=== PATIENT | female | born 1980 | race Caucasian/White ===

== ENCOUNTER 2021-03-16 13:07 | Emergency (ER) | payer OTHER ==
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
[2021-03-16 15:31] LABS: AMPHETAMINES,URINE NEGATIVE (NEGATIVE); BARBITURATES,URINE NEGATIVE (NEGATIVE); BENZODIAZEPINE,URINE NEGATIVE (NEGATIVE); MDMA (ECSTASY), URINE NEGATIVE (NEGATIVE); METHADONE,URINE NEGATIVE (NEGATIVE); METHAMPHETAMINES,URINE NEGATIVE (NEGATIVE); OPIATES,URINE NEGATIVE (NEGATIVE); OXYCODONE,URINE NEGATIVE (NEGATIVE); PHENCYCLIDINE,URINE NEGATIVE (NEGATIVE); TCA,URINE NEGATIVE (NEGATIVE)
[2021-03-16 16:24] LABS: ANION GAP 14.7 mEq/L (7-13); CHLORIDE,CL 105 mmol/L (98-107); SODIUM,NA 142 mmol/L (136-145)
[2021-03-16 16:29] LABS: ACETAMINOPHEN 0 ug/mL (10-30 (Therapeutic))
== END 2021-03-16 16:39 | disposition home or self-care (01) ==
LOC: DL.ED 13:07
DX: S43.401A Unspecified sprain of right shoulder joint, initial encounter (principal); R45.851 Suicidal ideations; V49.9XXA Car occupant (driver) (passenger) injured in unspecified traffic accident, initial encounter
CPT/HCPCS: 36415; 73060-RT; 80053; 80143; 80179; 80305-QW; 80307; 81001; 81025; 83735; 85025; 99285-25

== ENCOUNTER 2024-04-16 14:08 | Emergency (ER) | payer OTHER ==
[2024-04-16 15:57] LABS: BASOPHILS PERCENT AUTO 0.3 % (0.0-1.0); EOSINOPHILS PERCENT AUTO 2.1 % (1.0-3.0); HEMATOCRIT 34.2 % (37.0-47.0); HEMOGLOBIN 10.8 g/dL (12.0-16.0); MEAN CORPUSCULAR HEMOGLOBIN 26.7 pg (27.0-34.0); MEAN CORPUSCULAR HGB CONC 31.6 g/dL (33.0-35.0); MEAN CORPUSCULAR VOLUME 84.4 fL (80-100); MONOCYTES PERCENT AUTO 10.9 % (2-8); NEUTROPHILS PERCENT AUTO 58.7 % (42.2-75.2); PLATELET COUNT,PLT 347 10^3/uL (150-450); RED BLOOD CELL COUNT 4.05 10^6/uL (4.2-5.4); WHITE BLOOD CELL COUNT,WBC 6.6 10^3/uL (5.0-10.0)
[2024-04-16 16:27] LABS: A/G RATIO 1.2; ALANINE AMINOTRANSFERASE,ALT 26 U/L (14-59); ALBUMIN 3.7 g/dL (3.4-5.0); ALKALINE PHOSPHATASE 67 U/L (46-116); ANION GAP 13.7 mEq/L (7-13); ASPARTATE AMNIOTRANSFERASE,AST 24 U/L (15-37); BILIRUBIN TOTAL 0.3 mg/dL (0.2-1.0); BLOOD UREA NITROGEN,BUN 13 mg/dL (7-18); BUN/CREATININE RATIO 17.8 (No establ ref range); CALCIUM 8.6 mg/dL (8.5-10.1); CARBON DIOXIDE,CO2 26 mmol/L (21-32); CHLORIDE,CL 108 mmol/L (98-107); CREATININE 0.73 mg/dL (0.55-1.02); ESTIMATED GFR 105 mL/min (>=60); GLUCOSE RANDOM 108 mg/dL (70-99); MAGNESIUM 2.1 mg/dL (1.8-2.4); POTASSIUM,K 3.7 mmol/L (3.5-5.1); PROTEIN TOTAL,TP 6.8 g/dL (6.4-8.2); SODIUM,NA 144 mmol/L (136-145)
== END 2024-04-16 17:00 | disposition home or self-care (01) ==
LOC: DL.ED 14:08
DX: J40 Bronchitis, not specified as acute or chronic (principal); R07.89 Other chest pain; F17.210 Nicotine dependence, cigarettes, uncomplicated
CPT/HCPCS: 36415; 71045; 80053; 83735; 84484; 85025; 85379; 99285